=== PATIENT | female | born 1950 | race Two or more races ===

== ENCOUNTER 2024-04-18 05:50 | Day surgery (SDC) | payer OTHER ==
[2024-04-13 10:37] LABS: PH,URINE 5.5 (5.0-8.0); URINE APPEARANCE Clear; URINE BILIRRUBIN Negative (NEGATIVE); URINE BLOOD Negative; URINE COLOR Yellow; URINE GLUCOSE Negative (NEGATIVE); URINE KETONE Negative (NEGATIVE); URINE LEUKOCYTE Trace; URINE NITRATE Negative; URINE PROTEIN Negative (NEGATIVE); URINE UROBILINOGEN 0.2 E.U./dl
[2024-04-13 10:42] LABS: URINE BACTERIA 7.5 uL (0.0-1933); URINE EPITHELIAL CELLS 1.6 uL (0.0-38.8); URINE RBC 3.3 uL (0.0-20.8)
[2024-04-13 10:44] LABS: URINE CAST 0.15 uL (0.0-1.40)
[2024-04-13 10:46] VITALS: BP 118/78
[2024-04-13 10:49] LABS: HEMATOCRIT 34.7 % (36.0-45.00); HEMOGLOBIN 11.4 g/dL (12.0-15.00); MEAN CORPUSCULAR HEMOGLOBIN 20.2 pg (27.00-32.0); MEAN CORPUSCULAR HGB CONC 32.8 g/dl (32.0-36.0); PLATELET COUNT 344 K/uL (150-450); RED BLOOD COUNT 5.63 M/uL (4.00-6.00); RED CELL DISTRIBUTION WIDTH 17.3 % (11.5-14.5)
[2024-04-13 10:55] LABS: MEAN CELL VOLUME 61.7 fL (80.00-100.00)
[2024-04-13 10:58] LABS: INR 1.04; PARTIAL THROMBOPLASTIN TIME 28.7 SECONDS (22.0-34.0); PROTHROMBIN TIME 11.3 SECONDS (9.0-11.5)
[2024-04-13 11:44] LABS: ALBUMIN 4.2 gm/dL (3.4-5.0); BILIRUBIN TOTAL 0.71 mg/dL (0.3-1.2); CALCIUM 9.6 mg/dL (8.5-10.1); CREATININE SERUM 0.56 mg/dL (0.55-1.02); GFR 105.82; GLOBULINA 2.8 G/DL (2.4-3.5); POTASSIUM 4.53 mEq/L (3.5-5.1)
[~2024-04-18] VITALS: Ht 165.1 cm; Wt 76.2 kg
[~2024-04-18 05:50] MED LIST: PROTONIX40 MG PO
[2024-04-18] MEDS ORDERED: CEFAZOLIN SODIUM 1,000 MG VIAL IV ONE (15:00)
[2024-04-18] MEDS ORDERED: FAMOTIDINE/PF 20 MG/10 ML SYRINGE IV SCH (16:30)
[2024-04-18] MEDS ORDERED: CEFAZOLIN SODIUM 1,000 MG VIAL IV SCH (16:30)
[2024-04-18] MEDS ORDERED: MORPHINE SULFATE 4 MG/ML VIAL IV ONE (16:35)
== END 2024-04-18 21:40 | disposition home or self-care (01) ==
LOC: CIR.AMB 05:50
PROVIDERS: ATTEND Specialist
DX: K40.91 Unilateral inguinal hernia, without obstruction or gangrene, recurrent (principal)

== ENCOUNTER 2024-11-06 14:04 | Outpatient (CLI) | payer OTHER | END 2024-11-06 14:09 | disposition home or self-care (01) | LOC: RAD 14:04 | PROVIDERS: ATTEND Colon & Rectal Surgery | DX: K59.09 Other constipation (principal) ==